=== PATIENT | male | born 1950 | race Caucasian/White ===

== ENCOUNTER 2016-09-27 07:00 | Emergency (ER) | payer MEDICARE, OTHER ==
[2016-09-27] MEDS ORDERED: Sodium Chloride 0.9% 10 ML Syringe FLUSH PRN (07:28)
[2016-09-27] MEDS ORDERED: Ondansetron 4 MG/2 ML SDV IVPUSH ONE (07:28)
[2016-09-27] MEDS ORDERED: Morphine 4 MG/ML Syringe IVPUSH ONE (07:28)
[2016-09-27] MEDS ORDERED: Sodium Chloride 0.9% 1,000 ML IV ONE (07:43)
[2016-09-27 08:08] LABS: CHLORIDE,CL 99 mmol/L (98-107); SODIUM,NA 137 mmol/L (136-145)
[2016-09-27] MEDS ORDERED: Take Home: Acetaminophen/HYDROcodone 325-5 MG, 5 Tab Pack PO ONE (08:24)
[2016-09-27 11:15] VITALS: BP 143/90
--- NOTE | 2016-09-28 08:50 | ER ---
Date of Service: 09/27/2016 SUBJECTIVE: John presents to the emergency room with complaints of right hip and lateral abdominal pain. The patient states that he woke up with these symptoms at approximately 4 o'clock this morning. He states that he has not been experiencing any fever or chills with this. He states he is not experiencing any pain into his groin. The patient states that the discomfort is worse with movements. He denies any acute injury to the area. PAST MEDICAL HISTORY: 1. None ST-elevation myocardial infarction. 2. Chronic diastolic heart failure. 3. History of CVA. 4. COPD. 5. Chronic shortness of breath. 6. Tobacco abuse disorder. MEDICATIONS: 1. Selenium. 2. Incruse Ellipta. 3. Zinc. 4. Lipitor. 5. Pancreatic enzymes. 6. Aspirin. 7. Vitamin D3. 8. DHA. 9. Lasix. ALLERGIES: NKDA. PHYSICAL EXAMINATION: General: This is a 66-year-old male patient, who is in no acute distress. Vital Signs: Blood pressure is 143/90, pulse rate is 78, respiratory rate is 20, O2 saturations 90% on room air. Skin: Warm, pink, and dry. HEENT: Mouth, oral mucosa is moist. No erythema to the hypopharynx. Neck: Supple no masses there is no lymphadenopathy. Lungs: Clear to auscultation. Heart: Regular rate and rhythm. Abdomen: Soft, nontender. There is no hepatosplenomegaly noted. There is no masses noted. Abdomen: Soft, tender in the lateral aspect of his abdomen, immediately above his right hip. There is no masses noted. There is no hepatosplenomegaly noted. No rebound tenderness noted. Extremities: Without edema. Neurologic: He is alert and oriented, answers all questions appropriately. His speech is fluent. Gait is within normal limits. LABORATORY DATA: WBCs 9.9, hemoglobin is 18.9, PT is 259, coags PT is 9.5, INR is 0.8. Chemistry sodium is 137, potassium is 4.1, chloride is 99, bicarb is 31, BUN is 12, creatinine 0.8. Creatinine clearance is 96.15. GFR is greater than 60. Glucose is 108, calcium is 9.0, corrected calcium is 9.4, total bilirubin is 0.6, AST is 22, ALT is 30. Alkaline phosphatase is 101, total protein is 7.9, albumin is 3.5. Urinalysis reveals a trace of protein, and specific gravity is 1.020, pH was 7.0, negative for glucose, ketones, occult blood, nitrites and leukocyte esterase. EMERGENCY ROOM COURSE: IV access was established. The patient was given approximately 250 mL of normal saline and morphine 4 mg IV as well as Zofran 4 mg IV. He did report significant improvement in his discomfort. He remained stable with my care in the emergency room. ASSESSMENT: Right hip and flank pain. PLAN: Patient will be discharged. As the patient does not have any blood in his urine, I did not perform a CT scan. If he would have had blood in his urine, I would have done a noncontrast and if he had an elevated white count, I would have done a contrast CT scan. The patient does appear to be significantly more comfortable than when he initially presented to the emergency room. I did give him a short course of [place] 5/325 with instructions to take 1 every 4-6 hours as needed for pain. Re-examination of the patient's abdomen does not reveal any worrisome signs or symptoms. All questions were answered. THOMK: 09/27/2016 19:26:40 MODL: 09/27/2016 23:12:02 /[id number]
--- NOTE | 2016-10-07 07:56 | ER ---
Date of Service: 09/27/2016 ADDENDUM: REVIEW OF SYSTEMS: General: No fever or chills. HEENT: No sore throat, rhinorrhea, congestion. Respiratory: No shortness breath. Cardiac: Denies any substernal chest pain. GI: Please see history of present illness. : Please see history of present illness. Denies any melena, hematochezia, or hematemesis. Denies any hematuria. Neurologic: No fainting, blackouts, or lightheadedness. MWK: 10/06/2016 15:11:41 MODL: 10/06/2016 23:04:50 /[id number]
== END 2016-09-27 08:36 | disposition home or self-care (01) ==
LOC: VM.ED 07:00
DX: M25.551 Pain in right hip (principal); R10.9 Unspecified abdominal pain; J44.9 Chronic obstructive pulmonary disease, unspecified; I50.30 Unspecified diastolic (congestive) heart failure; I25.2 Old myocardial infarction; Z86.73 Personal history of transient ischemic attack (TIA), and cerebral infarction without residual deficits; R06.02 Shortness of breath; F17.200 Nicotine dependence, unspecified, uncomplicated; Z79.899 Other long term (current) drug therapy; Z79.82 Long term (current) use of aspirin
CPT/HCPCS: 80053; 81001; 85025; 85610; 96361; 96374; 96375; 99284; A9270; J2270; J2405; J7030